=== PATIENT | male | born 1950 | race Hispanic/Latino ===

== ENCOUNTER 2024-12-08 21:54 | Emergency (ER) | payer OTHER ==
[~2024-12-08] VITALS: Ht 167.6 cm; Wt 78.9 kg
--- NOTE | 2024-12-08 22:31 | ERN ---
ED Note History of Present Illness Stated Complaint: C/O HIGH B/P WITH RINGING TO EARS Chief Complaint: Hypertension Time Seen by MD: 21:58 Dictation: 74-year-old male past medical history of hypertension was brought to the ER due to elevated BP. Patient stated that he was at home and started feeling like a buzzing sound on his ear, he is on show up to see him and mentioned if he took his blood pressure today, patient stated that he forgot to take his home medication for blood pressure, he measures his BP and it was in the high 170s. The patient was evaluate at bedside, his blood pressure now systolic 135, diastolic 80s, patient already took his home medications for blood pressure. He denies chest pain. Allergies: Coded Allergies: No Known Allergies (Unverified Allergy, Unknown, 12/08/24) Past Medical History Past Medical History: High Cholesterol, Hypertension Surgical History: Unknown Review of System Dictation NEGATIVE EXCEPT PER HPI Constitutional: Negative for fever,chills, and weight loss Eyes: Negative for injury, pain,redness, and discharge ENT: Negative for injury,pain or swelling Cardiovascular: denies chest pain, palpitations, and edema Respiratory: Negative for shortness of breath, cough, and wheezing, Abdomen/GI: Negative for abdominal pain, nausea, vomiting, diarrhea, and constipation Back: Negative for injury and pain : Negative for injury, bleeding and discharge MS/Extremity: Negative for injury and deformity Skin: Negative for rash, and discoloration Neuro: Negative for headache, weakness, numbness, tingling, and seizure Psych: Negative for suicide ideation, homicidal ideation, and hallucinations Initial Vital Sign VS Vital Signs Date Time Temp Pulse Resp B/P (MAP) Pulse Ox O2 Delivery O2 Flow Rate FiO2 12/08/24 21:56 98.2 77 20 162/100 99 Room Air 12/08/24 22:05 0 21 Physical Exam Dictation General: awake, alert, NAD Head/Face: Normocephalic, atraumatic Eyes: PERRL, EOMI, vision at baseline ENT: oral cavity clear, TMs clear, no signs of infection Neck: Trachea midline, supple, no nuchal rigidity Cardiovascular: RRR, normal S1/S2, No MRGs, no JVD Respiratory: CTAB, no respiratory distress, No rales or wheezes Abdomen: Soft , no tender Skin: Warm, dry, normal turgor, no rash MS/Extremity: Pulses equal, no cyanosis, neurovascular intact, FROM Neuro: COAx4, GCS 15, strength 5/5, CN 2-12 intact, normal cerebellar exam, normal gait, Psych: Normal behavior, mood, and affect normal Results (Laboratory/Radiology) Laboratory/Radiology Laboratory Tests Test 12/08/24 22:36 Sodium Level 136 mmol/L (136-145) Potassium Level 3.9 mmol/L (3.5-5.1) Chloride Level 103 mmol/L (101-111) Carbon Dioxide Level 31 mmol/L (21-32) Blood Urea Nitrogen 22 mg/dL (7-18) H Creatinine 1.2 mg/dL (0.5-1.3) Glomerular Filtration Rate Calc 63 mL/min (>90) Random Glucose 112 mg/dL (70-105) H Total Calcium 7.9 mg/dL (8.5-10.1) L Troponin I High Sensitivity 5 ng/L (4-75) EKG Comment: EKG sinus rhythm, rate 69, QT 395, ED Course ED Course Orders Procedure Category Date Status Time Basic Metabolic Panel LAB 12/08/24 Complete 22:27 Troponin I High LAB 12/08/24 Complete Sensitivity 22:27 12 Lead Ekg Tracing- EKG 12/08/24 Logged Technical 22:27 Vital Signs Date Time Temp Pulse Resp B/P (MAP) Pulse Ox O2 Delivery O2 Flow Rate FiO2 12/08/24 23:08 98.2 75 17 148/74 98 Room Air* 0 21 12/08/24 22:05 98.1 77 18 154/79 98 Room Air* 0 21 12/08/24 21:56 98.2 77 20 162/100 99 Room Air Medical Decision Making MDM Hypertension Not compliant with a home medication for hypertension On initial evaluation blood pressure was already going down with a systolic 135, patient took his home medication prior my examination, on his way to the hospital. I explained to him that we are going to check his electrolytes, EKG, troponin. Results within normal limits the patient will be discharged home. DX & DISP Disposition: Discharge Departure Impression: Primary Impression: Hypertension Additional Impressions: Non compliance w medication regimen, Uncontrolled hypertension Condition: Stable Referrals: SUSANA CHESTER MD (PCP) RETURN TO ER FOR ANY ACUTE OR WORSENING SYMPTOMS. FOLLOW-UP IN 1-2 DAYS WITH PRIMARY PROVIDER FOR RECHECK OF TODAY'S SYMPTOMS. TOMASA WRAY MD Dec 08, 2024 22:31
[2024-12-08 22:58] LABS: CREATININE 1.2 mg/dL (0.5-1.3); GLOMERULAR FILTR. RATE CALC 63.0 mL/min (>90); GLUCOSE,RANDOM 112.0 mg/dL (70-105); SODIUM SERUM 136.0 mmol/L (136-145); UREA NITROGEN, BLOOD 22.0 mg/dL (7-18)
[2024-12-08 23:08] VITALS: BP 148/74; PULSE 75; RESP 17; TEMP 98.2; O2SAT 98
--- NOTE | 2024-12-09 02:53 | EKG ---
[facility] Test Date: 2024-12-08 Test Time: 22:39:42 Pat Name: NOEL JACOB Department: ED Room: Gender: M Clinical Practitioner: [id number] : 1950 Requested By: TOMASA HAMMONDS Order Number: [id number] Reading MD: Jasiel Mata Measurements Intervals [place] Rate: 69 P: 54 NH: 164 QRS: 5 QRSD: 97 T: 31 QT: 395 QTc: 424 Interpretive Statements Sinus rhythm No previous ECG available for comparison Electronically Signed On 12-09-2024 16:11:50 CDT by Jasiel Mata Please click the below link to view image of tracing.
== END 2024-12-08 23:20 | disposition home or self-care (01) ==
LOC: EDH 21:54
DX: I10 Essential (primary) hypertension (principal); E78.00 Pure hypercholesterolemia, unspecified; H93.13 Tinnitus, bilateral; Z91.148 Patient's other noncompliance with medication regimen for other reason
CPT/HCPCS: 36415; 80048; 84484; 93005; 99284